=== PATIENT | male | born 1940 | race Caucasian/White ===

== ENCOUNTER → 2020-09-06 | Outpatient (CLI) | payer MEDICARE, BC ==
[~2020-09-06] MED LIST: AMLO-150 PO; CALC1CAP8 PO; CHOL10003 PO; Calcium Carbonate PO; HYDR-2214 PO; PANT40TA6 PO
[2020-09-06 12:38] LABS: BASOPHILS % (AUTO) 2 % (0-1); EOSINOPHILS % (AUTO) 5 % (1-7); LYMPHOCYTES % (AUTO) 19 % (22-44); MEAN CORPUSCULAR HEMOGLOBIN 30.4 pg (27.5-34.5); MEAN CORPUSCULAR HGB CONC 34.1 g/dL (33.2-36.2); MEAN PLATELET VOLUME 7.2 fL (7.4-10.4); MONOCYTES % (AUTO) 12 % (2-9); NEUTROPHILS % (AUTO) 63 % (42-75); PLATELET COUNT 271 x10^3/uL (130-400); RED BLOOD COUNT 4.01 x10^6/uL (4.38-5.82); RED CELL DISTRIBUTION WIDTH 13.9 % (9.4-14.8)
[2020-09-06 12:48] LABS: INTERNATIONAL NORMALIZED RATIO 0.93 (0.93-1.1); PROTHROMBIN TIME 9.9 Seconds (9.6-11.5)
[2020-09-06 12:50] LABS: ANION GAP 3 mmol/L (5-15); CALCIUM 9.4 mg/dL (8.5-10.1); CHLORIDE 106 mmol/L (98-107); CREATININE 0.79 mg/dL (0.7-1.3)
== END | disposition home or self-care (01) ==
LOC: STAR 11:15
PROVIDERS: ATTEND Urology
DX: Z01.818 Encounter for other preprocedural examination (principal); N40.1 Benign prostatic hyperplasia with lower urinary tract symptoms; I44.0 Atrioventricular block, first degree
CPT/HCPCS: 36415; 80048; 85025; 85610; 93005

== ENCOUNTER 2020-09-14 13:25 | Day surgery (SDC) | payer MEDICARE, BC ==
[~2020-09-14] VITALS: Ht 182.9 cm; Wt 72.1 kg
[2020-09-14] MEDS ORDERED: CHLORHEXIDINE 15 ML UDC PO ONE (14:00)
[2020-09-14] MEDS ORDERED: LACTATED RINGERS 1,000 ML IV SCH (14:00)
[2020-09-14] MEDS ORDERED: CHLORHEXIDINE 15 ML UDC ONE (14:00)
[2020-09-14 14:01] VITALS: BP 151/80
[2020-09-14] MEDS ORDERED: FENTANYL PF 100 MCG/2ML ONE ×2 (15:22→15:48)
[2020-09-14] MEDS ORDERED: LIDOCAINE-MPF 2% ,5ML ONE (15:44)
[2020-09-14] MEDS ORDERED: CEFAZOLIN 1,000 MG ONE (15:44)
[2020-09-14] MEDS ORDERED: ONDANSETRON 2MG/ML, 2ML ONE (15:44)
[2020-09-14] MEDS ORDERED: PROPOFOL 10 MG/ML, 20ML ONE (15:44)
[2020-09-14] MEDS ORDERED: DEXAMETHASONE 4 MG/ML, 1ML ONE (15:44)
[2020-09-14] MEDS ORDERED: EPHEDRINE 50 MG/ML, 1ML ONE (15:44)
[2020-09-14] MEDS ORDERED: HYDROmorphone 1 MG/ML, 1ML INJ IVPush PRN (16:00)
[2020-09-14] MEDS ORDERED: hydrALAzine 20 MG/ML, 1ML IV PRN (16:00)
[2020-09-14] MEDS ORDERED: OXYcodone 5 MG/5 ML ORAL.SOL UDC PO PRN (16:00)
[2020-09-14] MEDS ORDERED: PROMETHAZINE 25 MG/ML, 1ML IVPush PRN (16:00)
[2020-09-14] MEDS ORDERED: LABETALOL 5MG/ML, 20ML IV PRN (16:00)
[2020-09-14] MEDS ORDERED: METHOCARBAMOL 1,000 MG in DEXTROSE 5% 100 ML IV PRN (16:00)
[2020-09-14] MEDS ORDERED: ACETAMINOPHEN 325 MG TABLET PO PRN (16:00)
[2020-09-14] MEDS ORDERED: FENTANYL PF 100 MCG/2ML IV PRN (16:00)
[2020-09-14] MEDS ORDERED: EPHEDRINE 50 MG/ML, 1ML IVPush PRN (16:00)
[2020-09-14] MEDS ORDERED: ONDANSETRON 2MG/ML, 2ML IVPush PRN (16:00)
== END 2020-09-14 18:25 | disposition home or self-care (01) ==
LOC: OR 13:25
PROVIDERS: ATTEND Urology
DX: N40.1 Benign prostatic hyperplasia with lower urinary tract symptoms (principal); R39.11 Hesitancy of micturition; R39.14 Feeling of incomplete bladder emptying; R39.12 Poor urinary stream; R33.8 Other retention of urine; I10 Essential (primary) hypertension; K21.9 Gastro-esophageal reflux disease without esophagitis; Z20.822 Contact with and (suspected) exposure to COVID-19; Z79.899 Other long term (current) drug therapy; Z87.442 Personal history of urinary calculi
CPT/HCPCS: 52235; 52601; 87635; 88305; J0690; J1100; J2405; J2704; J3010; J7120